=== PATIENT | male | born 1975 | race Caucasian/White ===

== ENCOUNTER 2016-07-13 23:00 | Emergency (ER) | payer BC | END 2016-07-13 23:25 | disposition short-term general hospital (02) | LOC: ER 23:00 | DX: I21.19 ST elevation (STEMI) myocardial infarction involving other coronary artery of inferior wall (principal); M79.601 Pain in right arm; M79.602 Pain in left arm; R11.0 Nausea; F17.210 Nicotine dependence, cigarettes, uncomplicated; Z88.6 Allergy status to analgesic agent | CPT/HCPCS: 96374; 96375; J0461; J1644 ==